=== PATIENT | male | born 1975 | race Caucasian/White ===

== ENCOUNTER 2023-04-10 02:13 | Day surgery (SDC) | payer OTHER, SELFPAY ==
[2023-03-31 15:03] VITALS: BMI 31.8
--- NOTE | 2023-04-09 19:40 | PM.HPGS ---
History of Present Illness History of Present Illness Consent: Risks, benefits, and alternatives have been discussed and questions answered. Patient agrees to proceed with procedure. Chief complaint: neoplasm screening Narrative: Maged Ojeda is a 47 year old male who is referred for colon cancer screening. Review of Systems Review of Systems: All systems reviewed & are unremarkable except as noted in HPI and below PMFSH Past Medical History Medical History Obesity (BMI 30.0-34.9) Family History Family History Grandparent Family history of coronary artery disease Social History Social History Years smoked: 15 Smoking status: Former smoker Tobacco type: cigarettes Smoking end date: 06/15/07 Alcohol intake: never Substance use type: does not use Lack of Transportation: No Lack of Food: Sometimes True Current Housing: I Have Housing Concerned About Future Housing: No Difficulty Paying Gas/Electric Bills: No Difficulty Paying for Meds: No Currently Unemployed: No Education: Master's Degree or Higher Difficulty w/ Childcare or Family Care: No Living arrangements: alone Spiritual care concerns: No Meds Home Medications and Allergies Home Medications Medication Instructions Recorded Confirmed Type paroxetine HCl 30 mg tablet 30 mg PO DAILY 06/22/19 04/10/23 History lovastatin 40 mg tablet 40 mg PO DAILY #90 tabs 12/25/21 04/10/23 Rx lisinopril 20 mg tablet 20 mg PO DAILY #90 tabs 10/29/22 04/10/23 Rx Allergies Allergy/AdvReac Type Severity Reaction Status Date / Time No Known Allergies Allergy Verified 04/10/23 10:08 Exam Resp: Auscultation: clear to auscultation bilaterally Cardio: Rate: regular rate Rhythm: regular rhythm GI: GI Palp: Yes Soft to palpation and No Tenderness to palpation present (GI) Assessment and Plan Assessment and plan (1) Colon cancer screening: Code(s): Z12.11 - Encounter for screening for malignant neoplasm of colon Status: Acute Assessment and Plan: Colonoscopy with possible biopsy or polypectomy or cautery or injection of substances.
[2023-04-10 10:09] VITALS: BP 155/85; PULSE 81; RESP 18; TEMP 36.5; O2SAT 96
[2023-04-10] MEDS: LACTATED RINGERS 1,000 ML 150 ML IV CONT (10:11)
--- NOTE | 2023-04-10 10:36 | WPDANESEPPF ---
Anes - Initial Pre Proc Eval Procedure: Operation Date: 04/10/23 11:45 Proposed Procedures p Screening Colonoscopy - Jessee Mayorga MD Date/Time: 04/10/23 10:36 Surgeon: Jessee Mayorga MD Pre Op Diagnosis: neoplasm screening Patient Data Age: 47 Gender: M Height: 1.75 m Weight: 95.5 kg Last Vital Signs Temp 97.7 F 04/10/23 10:09 Pulse 81 04/10/23 10:09 Resp 18 04/10/23 10:09 BP 155/85 H 04/10/23 10:09 Pulse Ox 96 04/10/23 10:09 O2 Del Method Room Air 04/10/23 10:09 Allergies Allergy/AdvReac Type Severity Reaction Status Date / Time No Known Allergies Allergy Verified 04/10/23 10:08 Home Medications Medication Instructions Recorded Confirmed Type paroxetine HCl 30 mg tablet 30 mg PO DAILY 06/22/19 04/10/23 History lovastatin 40 mg tablet 40 mg PO DAILY #90 tabs 12/25/21 04/10/23 Rx lisinopril 20 mg tablet 20 mg PO DAILY #90 tabs 10/29/22 04/10/23 Rx Patient hx anesthesia problems: none Family hx anesthesia problems: none Results Review: All pre-operative results and documents have been reviewed as part of the pre-operative evaluation. [facility] Past Medical History Medical History Obesity (BMI 30.0-34.9) Family History Family History Grandparent Family history of coronary artery disease Social History Social History (Updated 06/12/22 @ 10:04 by Una Villanueva MA) Years smoked: 15 Smoking status: Former smoker Tobacco type: cigarettes Smoking end date: 06/15/07 Alcohol intake: never Substance use type: does not use Lack of Transportation: No Lack of Food: Sometimes True Current Housing: I Have Housing Concerned About Future Housing: No Difficulty Paying Gas/Electric Bills: No Difficulty Paying for Meds: No Currently Unemployed: No Education: Master's Degree or Higher Difficulty w/ Childcare or Family Care: No Living arrangements: alone Spiritual care concerns: No Anes - Eval Final PreProcedure Day of Procedure 10/27/23 10:36 Patient weight: obese Heart: regular rate and rhythm Lungs: clear to auscultation Airway: Mallampati scale class II Neurological: alert and oriented Last oral intake: >/= 8 hours ASA classification: III Emergent: no Anesthetic plan: proceed Anesthesia type and monitoring: general GIVS and standard monitoring Results Review: All pre-operative results and documents have been reviewed as part of the pre-operative evaluation. Informed Consent: The patient's anesthetic plan and its attendant risks and benefits were discussed with the patient/family/POA. Questions were solicited and answers provided to the satisfaction of the patient/family/POA.
[2023-04-10 11:31] VITALS: BP 97/57; PULSE 91; RESP 18; O2SAT 98
[2023-04-10 11:41] VITALS: BP 126/71; PULSE 85; RESP 20; O2SAT 98
[2023-04-10 11:51] VITALS: BP 133/79; PULSE 73; RESP 18; O2SAT 98
== END 2023-04-10 11:53 | disposition home or self-care (01) ==
PROVIDERS: PCP Family Medicine; Visit Provider Internal Medicine Gastroenterology
PROC: 0DJD8ZZ Inspection of Lower Intestinal Tract, Via Natural or Artificial Opening Endoscopic (ICD-10-PCS; CPT 45378; principal; 2023-04-10 11:45)
DX: Z12.11 Encounter for screening for malignant neoplasm of colon (principal); D12.5 Benign neoplasm of sigmoid colon; E66.9 Obesity, unspecified; Z68.31 Body mass index [BMI] 31.0-31.9, adult; Z87.891 Personal history of nicotine dependence
CPT/HCPCS: 45381; 45385; 88305; J2704; J7120

== ENCOUNTER 2023-06-14 14:58 | Emergency (ER) | payer OTHER, SELFPAY ==
[2023-06-14] VITALS (10 sets, daily range): BP systolic 122–143; BP diastolic 69–79; PULSE 77–93; RESP 13–18; TEMP 36.2; O2SAT 92–97
--- NOTE | ~2023-06-14 | CT_ITS ---
EXAMINATION: CTA brain carotid DATE: 06/14/2023 18:47 INDICATION: severe neck pain w/MCKEON TECHNIQUE: Computed tomographic angiography (CTA) of the head was performed without and with 100 mL O mnipaque-350 intravenous contrast. CTA of the neck was performed with intravenous contrast. Automated exposure control and iterative reconstruction technique were employed. The dose-length product was 1 819.90 mGy-cm. Maximum intensity projection and volume rendered 3D-reconstructions were created by cara lanza technologist on a separate workstation. COMPARISON: None. FINDINGS: CT BRAIN: No acute large vessel infarct, intracranial hemorrhage, or hydrocephalus. Hemispheric, 1.6 cm, slight ly hyperdense, mildly enhancing dural based parasagittal mass in the left posterior occipital region, likely meningioma. CTA HEAD: No large vessel occlusion, aneurysm, high flow vascular malformation, nidus or extravasation. CTA NECK: Aortic arch and proximal great vessels: No arch calcification. Bovine arch anatomy. Right common carotid, carotid bifurcation, and internal carotid artery: No plaque.There is 0% stenosi s of the proximal right internal carotid artery relative to normal distal artery lumen diameter (NASC ET criteria). Left common carotid, carotid bifurcation, and internal carotid artery: Mild calcified and noncalcifie d plaque at the bifurcation.There is 0% stenosis of the proximal left internal carotid artery relativ e to normal distal artery lumen diameter (NASCET criteria). Vertebral arteries: No significant plaque or stenosis. Vertebral arteries co-dominant. Other findings: Irregular areas of groundglass opacification in the upper lungs with septal thickenin g. Mild degenerative changes in the cervical spine. IMPRESSION: No large vessel occlusion. No severe carotid or vertebral artery stenosis. 1.6 cm left posterior parasagittal meningioma. No peritonsillar abscess or other soft tissue abnormality detected in the neck. Pulmonary opacities may represent pulmonary edema or atypical infection. Reviewed, dictated and finalized at location K. D SERVICE TECHNICIAN [employer]
--- NOTE | 2023-06-14 17:34 | ED.NECK ---
HPI - Neck Pain/Injury General Chief Complaint: Neck Pain/Injury Stated Complaint: neck pain Time Seen by Provider: 06/14/23 16:36 History of Present Illness HPI Narrative: Patient is a 48-year-old male with a history of hypertension, hyperlipidemia presenting with neck pain. Patient states that for the last several days he has had severe neck pain to the point that he can not move his head. States that he is able to look down but not left, right, or up. States that it hurts to swallow. States that it has been radiating into the back of his head. He has been taking Vicodin and Flexeril without relief. No vision changes, numbness, weakness, fevers or chills. No chest pain or shortness of breath. Reports some nausea but no vomiting. No recent trauma. Denies throat pain Or difficulty swallowing. Related Data Home Medications Medication Instructions Recorded Confirmed paroxetine HCl 30 mg tablet 30 mg PO DAILY 06/22/19 06/14/23 Allergies Allergy/AdvReac Type Severity Reaction Status Date / Time No Known Allergies Allergy Verified 06/14/23 16:32 Review of Systems Review of Systems: All systems reviewed & are unremarkable except as noted in HPI and below PMFSH Past Medical History Medical History Obesity (BMI 30.0-34.9) Tubular adenoma of colon Family History Family History Grandparent Family history of coronary artery disease Social History Social History Years smoked: 15 Smoking status: Former smoker Tobacco type: cigarettes Smoking end date: 06/15/07 Alcohol intake: never Substance use type: does not use Lack of Transportation: No Lack of Food: Sometimes True Current Housing: I Have Housing Concerned About Future Housing: No Difficulty Paying Gas/Electric Bills: No Difficulty Paying for Meds: No Currently Unemployed: No Education: Master's Degree or Higher Difficulty w/ Childcare or Family Care: No Living arrangements: alone Spiritual care concerns: No Exam Narrative: GENERAL: Nontoxic, appears uncomfortable, pleasant cooperative HEAD: Normocephalic, atraumatic. EYES: PERRLA and EOMI. ENT: no posterior pharyngeal erythema, no exudates, no intraoral swelling, mucous membranes moist. NECK: no midline tenderness of cervical spine, + bilateral paraspinal tenderness, worse on the left; patient unable to look to the left, right or up due to pain CHEST: No respiratory distress. HEART: Regular rate and rhythm EXTREMITIES: Normal range of motion. SKIN: Warm, dry, no rash. NEURO: No focal deficits. Alert and oriented x3. 5/5 strength in all extremities, no sensory deficits, no pronator drift, no dysarthria or aphasia PSYCH: Normal mood and affect. Course Vital Signs Vital signs: Vital Signs Temperature 97.2 F L 06/14/23 15:02 Pulse Rate 88 06/14/23 15:02 Respiratory Rate 18 06/14/23 15:02 Blood Pressure 131/75 06/14/23 15:02 Pulse Oximetry 94 06/14/23 15:02 Oxygen Delivery Room Air 06/14/23 15:02 Temperature 97.2 F L 06/14/23 15:02 Pulse Rate 80 06/14/23 20:00 Respiratory Rate 13 06/14/23 20:00 Blood Pressure 122/69 06/14/23 20:15 Pulse Oximetry 94 06/14/23 20:00 Oxygen Delivery Room Air 06/14/23 15:02 MDM - Neck Pain/Injury MDM Narrative Medical decision making narrative: 48-year-old male presenting with severe neck pain, headache. vitals are stable. Exam remarkable for the above. Neurologically intact. No nuchal rigidity. Blood work is unremarkable. Normal electrolytes. Normal CK. CTA head neck shows no vascular abnormalities. No obvious abnormalities in the soft tissue. On re-evaluation, the patient states that his pain has improved. Given the reassuring workup, I must suspect musculoskeletal pain and muscle spasms. Mayda
[2023-06-14] MEDS: SODIUM CHLORIDE 0.9% IV 1,000 ML 999 ML IV CONT (17:55)
[2023-06-14] MEDS: diazePAM INJ (*CRX) 10 MG/2 ML SYRINGE 2 MG IV PUSH (17:56)
[2023-06-14] MEDS: KETOROLAC 30 MG/ML VIAL (*BKC) IV PUSH (17:56)
[2023-06-14] MEDS: HYDROmorphone HCL INJ (*CRX) 1 MG/ML SYR IV PUSH (17:56)
[2023-06-14 17:58] LABS: Basophils Percent Auto 0.4 % (0.2-1.2); Eosinophils Absolute Auto 0.2 K/mm3 (0-0.3); Eosinophils Percent Auto 3.4 % (0-4.4); Hematocrit 47.8 % (42.0-52.0); Hemoglobin 15.4 g/dL (14.0-18.0); Immature Granulocyte Absolute 0.01 K/mm3 (0.00-0.031); Immature Granulocyte Percent A 0.1 % (0-0.5); Lymphocytes Absolute Auto 2.11 K/mm3 (0.9-3.2); Mean Corpuscular HGB Conc 32.2 g/dl (32-36); Mean Corpuscular Hemoglobin 29.6 pg (26-34); Mean Corpuscular Volume 91.7 fl (80-100); Mean Platelet Volume 9.1 fl (7.4-10.4); Monocytes Absolute Auto 0.4 K/mm3 (0.1-0.6); Monocytes Percent Auto 6.5 % (2.6-8.5); Neutrophils Percent Auto 58.6 % (45.5-73.1); Platelet Count Result 266 k/mm3 (150-375); Red Blood Count 5.21 M/mm3 (4.6-6.20); Red Cell Distribution Width 12.3 % (11.5-14.5); White Blood Count 6.8 K/mm3 (4.5-10.0)
[2023-06-14 18:12] LABS: Alanine Aminotransferase 37 U/L (6-50); Albumin Level 4.8 g/dL (3.5-5.1); Alkaline Phosphatase 64 U/L (38-126); Anion Gap 10 mmol/L (8-16); Aspartate Amino Transferase 28 U/L (17-59); Bilirubin,Total 0.6 mg/dL (0.2-1.3); Blood Urea Nitrogen 14 mg/dL (9-20); Calcium 9.9 mg/dL (8.4-10.2); Carbon Dioxide 25 mmol/L (22-30); Chloride 102 mmol/L (98-107); Creatine Kinase 75 U/L (55-170); Estimated Glomerular Filt Rate > 60; Glucose 98 mg/dL (65-110); Potassium 4.3 mmol/L (3.4-5.0); Sodium 137 mmol/L (137-145)
--- NOTE | 2023-06-14 19:54 | PC.NURSE ---
Report received from KUN Bro. Assumed care of patient at this time.
[2023-06-14] MEDS: methylPREDNISolone SOD SUCC 125 MG VIAL IV PUSH (20:17)
== END 2023-06-14 20:25 | disposition home or self-care (01) ==
PROVIDERS: Emergency Provider Emergency Medicine; PCP Family Medicine
DX: M54.2 Cervicalgia (principal); I10 Essential (primary) hypertension; E78.5 Hyperlipidemia, unspecified
CPT/HCPCS: 36415; 70496; 70498; 80053; 82550; 85025; 96361; 96374; 96375; 99284; J1170; J1885; J2930; J3360; J7030; Q9967

== ENCOUNTER 2024-09-23 15:20 | Emergency (ER) | payer OTHER, SELFPAY ==
[2024-09-23 15:36] VITALS: BP 133/78; PULSE 91; RESP 16; TEMP 36.9; O2SAT 98
--- NOTE | 2024-09-23 15:55 | ED.URI ---
HPI - URI/Sore Throat General Chief Complaint: Upper Respiratory Infection Stated Complaint: COLD/SINUS Source: patient and RN notes reviewed Mode of arrival: ambulatory Limitations: no limitations History of Present Illness HPI Narrative: 49-year-old male presents Express Care complaining of upper respiratory symptoms for 2 days. Patient reports having a cough and congestion. Patient says his cough is dry and hacking, nonproductive. Patient denies sore throat, ear pain, fevers, chills, body aches. Patient denies any chest pain or difficulty breathing. Patient reports being a former smoker. Patient's history includes anxiety and hypertension. Patient has not taken anything [id number] at home for his symptoms. Patient is a aboriginal home school liaison officer Related Data Allergies Allergy/AdvReac Type Severity Reaction Status Date / Time No Known Allergies Allergy Verified 09/23/24 15:33 Review of Systems Review of Systems: CONSTITUTIONAL: Denies fever, chills, or sweats. EYES: Denies visual changes, redness, or discharge. ENT: Denies rhinorrhea, sore throat, or otalgia. Positive for congestion CARDIOVASCULAR: Denies chest pain, palpitations, or edema. RESPIRATORY: Positive for cough negative for dyspnea. GASTROINTESTINAL: Denies abdominal pain, nausea, vomiting, or diarrhea. GENITOURINARY: Denies dysuria or hematuria. SKIN: Denies rash or itching. MUSCULOSKELETAL: Denies back pain, joint pain, or myalgia. NEUROLOGIC: Denies headache, numbness, or weakness. PSYCHIATRIC: Denies anxiety or depression. All other systems reviewed are negative, except as documented in HPI. [facility], [facility] Past Medical History Medical History Nicotine dependence Alcoholic Tubular adenoma of colon Obesity (BMI 30.0-34.9) Family History Family History Grandparent Family history of coronary artery disease Sibling Adult medulloblastoma Sibling Breast cancer Social History Social History Years smoked: 15 Smoking status: Former smoker Tobacco type: cigarettes Smoking end date: 06/15/07 Alcohol intake: never Substance use type: does not use Lack of Transportation: No Lack of Food: Sometimes True Current Housing: I Have Housing Concerned About Future Housing: No Difficulty Paying Gas/Electric Bills: No Difficulty Paying for Meds: No Currently Unemployed: No Education: Master's Degree or Higher Difficulty w/ Childcare or Family Care: No Living arrangements: alone Spiritual care concerns: No Comments At the time of my signature, I reviewed and agree with the nursing past medical, surgical, social, and family history. There is no relevant family history pertinent to the patient complaint. Exam Narrative: GENERAL: This is a well-nourished, well-developed adult, in no apparent distress. They are non ill-appearing, nontoxic appearing. HEAD: normocephalic, atraumatic. EYES: Sclera clear/white. Vision is grossly intact. EARS: External ears normal, auditory canals clear and without drainage, TMs normal without perforation. Hearing grossly intact. NOSE: External nose normal with no obvious nasal discharge, nares with mild erythema, no swelling, no rhinorrhea. THROAT: Mucous membranes moist, posterior pharynx clear, without redness or swelling. Postnasal drip present. Uvula midline NECK: Neck supple, non-tender without lymphadenopathy, masses or thyromegaly. CARDIOVASCULAR: Regular rate and rhythm without murmurs, gallops, or rubs. RESPIRATORY: Clear to auscultation. Breath sounds equal bilaterally. No wheezes, rales, or rhonchi. SKIN: warm, Dry, intact with no suspicious lesions or rash, good texture and turgor. NEURO: awake, alert, and oriented to person, place and time. There were no obvious focal neurologic abnormalities. EXTREMITIES: No joint tenderness, effusion, or edema noted. Course Course Level of Care: Express Care Visit Vital Signs Vital signs: Vital Signs Temperature 98.5 F 09/23/24 15:36 Pulse Rate 91 09/23/24 15:36 Respiratory Rate 16 09/23/24 15:36 Blood Pressure 133/78 09/23/24 15:36 Pulse Oximetry 98 09/23/24 15:36 Temperature 98.5 F 09/23/24 15:36 Pulse Rate 91 09/23/24 15:36 Respiratory Rate 16 09/23/24 15:36 Blood Pressure 133/78 09/23/24 15:36 Pulse Oximetry 98 09/23/24 15:36 Reviewed MDM - URI/Sore Throat MDM Narrative Medical decision making narrative: Symptoms are likely viral in etiology. Will prescribe benzonatate as needed for cough. Will also prescribe albuterol as needed for cough or wheezing. Offered patient viral testing he declined. Discussed physical exam findings. Advised supportive measures and signs/symptoms to go to the ER. Pt is appropriate for outpt treatment and f/u. Differential Diagnosis Differential diagnosis: Likely upper respiratory infection, viral infection and bronchitis Critical Care Time Critical Care Time Critical Care Time: No Discharge Plan Discharge Clinical Impression: Upper respiratory infection Qualifiers: URI type: unspecified viral URI Qualified Code(s): J06.9 - Acute upper respiratory infection, unspecified Patient Disposition: Home Condition: Stable Instructions: Upper Respiratory Infection (ED) Additional Instructions: Viral illness may last between 7-21 days; antibiotics do not cure viral illness and are NOT recommended at this time. Recommend antihistamine such as Benadryl at night time and Zyrtec or Dalia during the day Take Tessalon Perles as directed. Also, recommend symptomatic treatment includes: rest, fluids, and increase humidity of the air at home. Recommend Acetaminophen or Motrin as directed on the bottle to reduce fever, pain, headache. Please schedule a follow-up visit with your personal physician for further evaluation and treatment within 3-5days. If your symptoms persist, change or worsen significantly before you can contact your personal physician then please, without delay, go to the emergency department for further evaluation. Patient Language: Hong Konger Prescriptions: New benzonatate 100 mg capsule 100 mg PO TID PRN (Reason: cough) Qty: 20 0RF albuterol sulfate [Ventolin HFA] 90 mcg/actuation HFA aerosol inhaler 2 puff inhalation QID PRN (Reason: shortness of breath or wheezing) Qty: 8.5 0RF No Action paroxetine HCl 30 mg tablet 30 mg PO DAILY Qty: 90 3RF lisinopril 20 mg tablet 20 mg PO DAILY Qty: 90 1RF lovastatin 40 mg tablet 40 mg PO DAILY Qty: 90 1RF Follow-up/Referrals: Vlad Delgado MD [Primary Care Provider] - Time of Disposition: 15:53
== END 2024-09-23 16:00 | disposition home or self-care (01) ==
PROVIDERS: PCP Family Medicine
DX: J06.9 Acute upper respiratory infection, unspecified (principal); Z87.891 Personal history of nicotine dependence; I10 Essential (primary) hypertension; E66.9 Obesity, unspecified; Z68.33 Body mass index [BMI] 33.0-33.9, adult; F41.9 Anxiety disorder, unspecified
CPT/HCPCS: 99213; G0463